=== PATIENT | female | born 1985 | race Caucasian/White ===

== ENCOUNTER 2017-03-02 08:16 | Emergency (ER) | payer OTHER ==
[2017-03-02 08:59] LABS: ABSOLUTE EOSINOPHILS # (AUTO) 0.1 10^3/uL (0.0-0.6); ABSOLUTE LYMPHOCYTES (AUTO) 1.2 10^3/uL (0.5-4.7); ABSOLUTE MONOCYTES (AUTO) 0.4 10^3/uL (0.1-1.4); ABSOLUTE NEUT (AUTO) 5.1 10^3/uL (1.7-8.2); BASOPHILS % (AUTO) 0.7 % (0-2); HEMATOCRIT 40.9 % (36.0-47.0); HEMOGLOBIN 14.3 g/dL (12.0-15.5); LYMPHOCYTES % (AUTO) 17.2 % (13-45); MEAN CORPUSCULAR HEMOGLOBIN 33.6 pg (27.0-33.4); MEAN CORPUSCULAR HGB CONC 34.9 g/dL (32.0-36.0); MEAN CORPUSCULAR VOLUME 96 fl (80-97); RED BLOOD COUNT 4.25 10^6/uL (3.72-5.28); SEGMENTED NEUTROPHILS % (AUTO) 75.1 % (42-78); WHITE BLOOD COUNT 6.8 10^3/uL (4.0-10.5)
[2017-03-02 09:21] LABS: ALANINE AMINOTRANSFERASE 25 U/L (9-52); ALBUMIN 4.4 g/dL (3.5-5.0); ALKALINE PHOSPHATASE 65 U/L (38-126); ANION GAP 10 (5-19); ASPARTATE AMINO TRANSFERASE 20 U/L (14-36); BILIRUBIN,DIRECT 0.4 mg/dL (0.0-0.4); BLOOD UREA NITROGEN 12 mg/dL (7-20); CALCIUM 9.3 mg/dL (8.4-10.2); CARBON DIOXIDE 25 mmol/L (22-30); CHLORIDE 106 mmol/L (98-107); CREATININE RESULT 0.73 mg/dL (0.52-1.25); GLUCOSE 77 mg/dL (75-110); LIPASE 93.7 U/L (23-300); POTASSIUM 4.1 mmol/L (3.6-5.0); SODIUM 140.7 mmol/L (137-145); TOTAL PROTEIN 7.1 g/dL (6.3-8.2)
[2017-03-02] MEDS ORDERED: NORMAL SALINE 1000 ML 1,000 ML IV ONE ×2 (09:22→13:20)
[2017-03-02] MEDS ORDERED: MORPHINE SULFATE 10 MG/ML INJ IV ONE (09:22)
[2017-03-02] MEDS ORDERED: ONDANSETRON 4 MG TAB.RAPDIS PO ONE (09:22)
[2017-03-02 10:10] LABS: APPEARANCE,URINE CLEAR; BILIRUBIN,URINE NEGATIVE (NEGATIVE); GLUCOSE, URINE NEGATIVE (NEGATIVE); KETONES,URINE NEGATIVE (NEGATIVE); LEUKOCYTE ESTERASE,URINE SMALL (NEGATIVE); NITRITE,URINE NEGATIVE (NEGATIVE); PROTEIN,URINE NEGATIVE (NEGATIVE); URINE SPECIFIC GRAVITY 1.004; UROBILINOGEN,URINE NEGATIVE mg/dL (<2.0)
--- NOTE | 2017-03-02 10:29 | ER Document Report ---
ED GI/ - General Chief Complaint: Abdominal Pain Stated Complaint: ABDOMINAL PAIN Time Seen by Provider: 03/02/17 08:56 Mode of Arrival: Ambulatory Information source: Patient Notes: 31-year-old female complaining of more severe abdominal pain/pelvic pain since this morning at 615. Her alarm clock woke her up. She has nausea without vomiting. Normal bowel movement yesterday. No fever but had chills. No dysuria frequency or urgency. Was treated for possible PID February 17 when she went [employer] and had right adnexal tenderness, no US done then. Some mild cramping in that area since. Spotted last week, more bleeding this am. She is presently taking doxycycline and was given an injection of antibiotic at the office. No vaginal discharge. Tried to go to work today but had to come in because of the pain. She is crying. No hx abdominal surgery. TRAVEL OUTSIDE OF THE [place] IN LAST 30 DAYS: No - Related Data Allergies/Adverse Reactions: codeine [Codeine] Allergy (Unknown, Verified 02/11/15 12:12) hydrocodone bitartrate [From Vicodin] Allergy (Unknown, Verified 02/11/15 12:12) hydromorphone HCl [From Dilaudid] Allergy (Unknown, Verified 02/11/15 12:12) Past Medical History - General Information source: Patient - Social History Smoking Status: Current Every Day Smoker Frequency of alcohol use: Rare Drug Abuse: None Lives with: Family Family History: None Patient has suicidal ideation: No Patient has homicidal ideation: No Pulmonary Medical History: Reports: Hx Asthma Neurological Medical History: Reports: Hx Migraine Renal/ Medical History: Denies: Hx Peritoneal Dialysis Surgical Hx: Negative Past Surgical History: Reports: Hx Gynecologic Surgery - ectopic rupture, Hx Tubal Ligation - Immunizations Immunizations up to date: Yes Hx Diphtheria, Pertussis, Tetanus Vaccination: No Hx Pneumococcal Vaccination: 07/13/00 Review of Systems - Review of Systems Constitutional: No symptoms reported EENT: No symptoms reported Cardiovascular: No symptoms reported Respiratory: No symptoms reported Gastrointestinal: See HPI Genitourinary: No symptoms reported Female Genitourinary: No symptoms reported Musculoskeletal: No symptoms reported Skin: No symptoms reported Hematologic/Lymphatic: No symptoms reported Neurological/Psychological: No symptoms reported Physical Exam - Vital signs Vitals: Temp Pulse Resp BP Pulse Ox 97.9 F 97 21 H 144/95 H 99 03/02/17 08:25 03/02/17 08:25 03/02/17 08:25 03/02/17 08:25 03/02/17 08:25 Interpretation: Normal - General General appearance: Appears well, Alert - HEENT Head: Normocephalic, Atraumatic Eyes: Normal Conjunctiva: Normal Pupils: PERRL Neck: Supple. No: Lymphadenopathy - Respiratory Respiratory status: No respiratory distress Chest status: Nontender Breath sounds: Normal Chest palpation: Normal - Cardiovascular Rhythm: Regular Heart sounds: Normal auscultation Murmur: No - Abdominal Inspection: Normal Distension: No distension Bowel sounds: Normal Tenderness: Tender - right side, most at [facility] Organomegaly: No organomegaly. No: Hepatomegaly, Splenomegaly - Genitourinary External exam: Normal Speculum exam: Cervix closed Vaginal bleeding: Mild Bimanuel exam: Cervical motion tender, Adnexal tenderness - right - Back Back: Normal, Nontender. No: CVA tenderness - Extremities General upper extremity: Normal inspection, Nontender, Normal color, Normal ROM , Normal temperature General lower extremity: Normal inspection, Nontender, Normal color, Normal ROM , Normal temperature, Normal weight bearing. No: Jean-Paul's sign - Neurological Neuro grossly intact: Yes Cognition: Normal Orientation: AAOx4 Philip Coma Scale Eye Opening: Spontaneous Philip Coma Scale Verbal: Oriented Converse Coma Scale Motor: Obeys Commands Philip Coma Scale Total: 15 Speech: Normal Motor strength normal: LUE, RUE, LLE, RLE Sensory: Normal - Psychological Associated symptoms: Normal affect, Normal mood - Skin Skin Temperature: Warm Skin Moisture: Dry Skin Color: Normal Skin irregularity: negative: Rash Course - Re-evaluation Re-evalutation: 03/02/17 13:18 US ok, labs ok except for wet prep possible BV, she thought she had BV due to fishy odor when seen obgyn 8-7. no flagyl. 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 [facility] rec iv and oral. dr jones tonal regulator for surgeryl. 03/02/17 15:45 appendix retrocecal with no inflammation, ceum depp into pelvis, mild scoliosis , small right ovarian cyst. - Vital Signs Vital signs: Temp Pulse Resp BP Pulse Ox 97.9 F 97 18 106/52 L 100 03/02/17 08:26 03/02/17 08:26 03/02/17 08:26 03/02/17 14:31 03/02/17 14:31 - Laboratory Result Diagrams: 03/02/17 08:45 03/02/17 08:45 Laboratory results interpreted by me: 03/02/17 03/02/17 08:45 09:46 [facility] 33.6 H Urine Blood LARGE H Ur Leukocyte Esterase SMALL H Discharge - Discharge Clinical Impression: Vaginal bleeding, Pelvic pain, RLQ abdominal pain, Bacterial vaginosis, small right ovarian cyst Condition: Good Disposition: HOME, SELF-CARE Instructions: Abdominal Pain ([facility]), Pelvic Pain ([facility]), Vaginal Bleeding ([facility]), Metronidazole ([facility]), Vaginosis, Bacterial ([facility]), Ovarian Cyst ([facility]) Additional Instructions: see microbiology analyst if persists no alcohol with the metronidizole copy of all labs, imaging done Please complete the patient satisfaction survey if you get one, and return it.. If you do not receive a survey, then you can go to the [facility] website, [email or web address] and place your comments about your very good care. Thank you very much. It was a pleasure being your medical provider today. Prescriptions: Ibuprofen [Motrin 600 mg Tablet] 600 mg PO Q8HP PRN #30 tablet PRN Reason: Forms: Return to Work
[2017-03-02 12:37] LABS: CHLAM PCR NOT DETECTED (NOT DETECT)
--- NOTE | 2017-03-02 12:56 | RADIOLOGY REPORT (SQ) ---
EXAM DESCRIPTION: U/S NON OB PEL TV W/DOPPLER COMPLETED DATE/TIME: 03/02/2017 12:48 pm REASON FOR STUDY: pelvic pain, adryan right adnexa COMPARISON: None. TECHNIQUE: Dynamic and static grayscale images acquired of the pelvis via transvaginal approach and recorded on PACS. Additional selected color Doppler and spectral images recorded. LIMITATIONS: None. FINDINGS: UTERUS: Contour normal. No mass. ENDOMETRIAL STRIPE: No focal or generalized thickening. No masses. CERVIX: No nabothian cysts. RIGHT OVARY: Small cyst is identified measuring 1.7 x 1.5 x 1.6 cm RIGHT OVARY DOPPLER: Normal arterial vascular flow without evidence for torsion. LEFT OVARY: Small cyst is identified measuring 1.2 x 0.9 x 0.9 cm LEFT OVARY DOPPLER: Normal arterial vascular flow without evidence for torsion. FREE FLUID: None noted. OTHER: No other significant finding. MEASUREMENTS: UTERUS: 7.4 x 5.2 x 3.4 sign ENDOMETRIAL STRIPE: 3.3 mm RIGHT OVARY: 3.8 x 1.9 x 1.8 cm LEFT OVARY: 1.8 x 1.5 x 1.6 sign IMPRESSION: No significant pelvic abnormalities were identified. Findings as noted above TECHNICAL DOCUMENTATION: JOB ID: [id number] [employer]- All Rights Reserved
--- NOTE | 2017-03-02 13:45 | RADIOLOGY REPORT (SQ) ---
EXAM DESCRIPTION: CT ABD/PELVIS NO ORAL OR IV COMPLETED DATE/TIME: 03/02/2017 1:25 pm REASON FOR STUDY: rlq abd pain, us ok COMPARISON: None. TECHNIQUE: CT scan of the abdomen and pelvis performed without intravenous or oral contrast. Images reviewed with lung, soft tissue, and bone windows. Reconstructed coronal and sagittal MPR images revi ewed. All images stored on PACS. All CT scanners at this facility use dose modulation, iterative reconstruction, and/or weight based d osing when appropriate to reduce radiation dose to as low as reasonably achievable (ALARA). [facility]: Dose Right [facility]: CareDose [facility]: Dose Right [facility]: Teradose 4D [facility]: Blink Logic RADIATION DOSE: Up-to-date CT equipment and radiation dose reduction techniques were employed. CTDIv ol: 6.0 mGy. DLP: 312 mGy-cm.mGy. LIMITATIONS: None. FINDINGS: LOWER CHEST: No significant findings. No nodules or infiltrates. NON-CONTRASTED LIVER, SPLEEN, ADRENALS: Evaluation limited by lack of IV contrast. No identified sign ificant masses. PANCREAS: No masses. No peripancreatic inflammatory changes. GALLBLADDER: No identified stones by CT criteria. No inflammatory changes to suggest cholecystitis. RIGHT KIDNEY AND URETER: No suspicious masses. Assessment limited by lack of IV contrast. No signif icant calcifications. No hydronephrosis or hydroureter. LEFT KIDNEY AND URETER: No suspicious masses. Assessment limited by lack of IV contrast. No signifi cant calcifications. No hydronephrosis or hydroureter. AORTA AND RETROPERITONEUM: No aneurysm. No retroperitoneal masses or adenopathy. BOWEL AND PERITONEAL CAVITY: No obvious masses or inflammatory changes. No free fluid. Please note t he cecum extends down and touches the midline deep in the pelvis. APPENDIX: The appendix appears to be retrocecal and normal. There are no pericecal inflammatory yanes ges. PELVIS, BLADDER, AND ABDOMINAL WALL:The urinary bladder is normal. The uterus is normal. There is n o adnexal mass. There may be an 18 mm right ovarian cyst. BONES: Mild upper lumbar scoliosis. No acute osseous abnormality. OTHER: No other significant finding. IMPRESSION: 1. There may be a small right ovarian cyst. 2. The cecum extends deep into the pelvis and the appendix appears to be retrocecal with no evidence of acute inflammation. 3. Mild scoliosis. TECHNICAL DOCUMENTATION: JOB ID: [id number] Quality ID # [id number]: Final reports with documentation of one or more dose reduction techniques (e.g., Au tomated exposure control, adjustment of the mA and/or kV according to patient size, use of iterative reconstruction technique) 2010 [email or web address]- All Rights Reserved
[2017-03-02] MEDS ORDERED: ACETAMINOPHEN 325 MG TABLET PO ONE (16:06)
[2017-03-02] MEDS ORDERED: IBUPROFEN 600 MG TABLET PO ONE (16:06)
[2017-03-02 16:45] VITALS: BP 123/82
== END 2017-03-02 16:56 | disposition home or self-care (01) ==
LOC: ER 08:16
DX: N93.8 Other specified abnormal uterine and vaginal bleeding (principal); R10.2 Pelvic and perineal pain; R10.31 Right lower quadrant pain; N76.0 Acute vaginitis; B96.89 Other specified bacterial agents as the cause of diseases classified elsewhere; N83.201 Unspecified ovarian cyst, right side; F17.200 Nicotine dependence, unspecified, uncomplicated; Z88.6 Allergy status to analgesic agent
CPT/HCPCS: 99284; 96361; 96374; 36415; 87086; 87210; 83690; 84703; 85025; 87088; 80053; 81001; 87491; 87591; 76830; 93976; 74176; S0119; J2270; J7030

== ENCOUNTER → 2018-06-11 | Outpatient (CLI) | payer OTHER ==
--- NOTE | 2018-06-11 14:37 | RADIOLOGY REPORT (SQ) ---
EXAM DESCRIPTION: CHEST PA/LATERAL COMPLETED DATE/TIME: 06/11/2018 2:27 pm REASON FOR STUDY: COUGH R05 COMPARISON: 09/11/2014 EXAM PARAMETERS: NUMBER OF VIEWS: two views TECHNIQUE: Digital Frontal and Lateral radiographic views of the chest acquired. RADIATION DOSE: NA LIMITATIONS: none FINDINGS: LUNGS AND PLEURA: No opacities, masses or pneumothorax. No pleural effusion. MEDIASTINUM AND HILAR STRUCTURES: No masses or contour abnormalities. HEART AND VASCULAR STRUCTURES: Heart normal size. No evidence for failure. BONES: No acute findings. HARDWARE: None in the chest. OTHER: No other significant finding. IMPRESSION: NO SIGNIFICANT RADIOGRAPHIC FINDING IN THE CHEST. TECHNICAL DOCUMENTATION: JOB ID: [id number] [employer]- All Rights Reserved Reading location - IP/workstation name: [email or web address]
== END ==
LOC: OD 14:16
PROVIDERS: ATTEND Nurse Practitioner Family
DX: R05 Cough (principal); N39.0 Urinary tract infection, site not specified
CPT/HCPCS: 71046; 87086; 87088; 87186